=== PATIENT | male | born 2005 | race Caucasian/White ===

== ENCOUNTER 2023-10-22 14:05 | Inpatient (IN) ==
--- NOTE | 2023-10-22 14:41 | Emergency Department Note ---
Impression & Plan Sepsis, Peritonsillar abscess, Strep throat, Mononucleosis, Neutropenic sepsis ED Provider Note NAME: EMEKA BARNETT AGE: 18 SEX: M : 2005 ARRIVES VIA: Walk-In INFORMANT: Patient, ED PROVIDER(S): Zachary Sanchez MD CHIEF COMPLAINT: Outpatient referral, sore throat, concern for sepsis MEDICAL DECISION MAKING: Patient presents due to concern for sore throat recent positive strep test who is tachycardic and febrile. Sepsis protocols initiated along with IV fluids IV Toradol IV Unasyn and dexamethasone. Patient's blood work shows leukopenia and anemia. The patient's kidney function is unremarkable initial lactate of 2.6. The patient was ordered additional IV fluids. Hyponatremia at 131 with a low magnesium 1.6. This was ordered for replete meant. Procalcitonin 9.7. Given the patient's concern for SHOEMAKING FINISHER just on exam alone I did speak with Dr. Ly we did ask that the patient have a CT of the soft tissue neck completed. Patient's ANC is low 0.03. Clindamycin added in addition to the Unasyn for antitoxin effect after discussion with ED pharmacy. CT soft tissue neck shows findings compatible with SHOEMAKING FINISHER with possible tiny abscess versus developing phlegmon on the left as well. Cervical adenopathy noted also. I subsequently did speak with the on-call hospitalist service Dr. Bender and the patient was admitted to the medicine service. Patient's repeat lactate was 2.2. Discussion w/ other healthcare providers: ED pharmacist Malachi Velazquez, Pharm.D. Dr. Ly ENT Dr. Bender inpatient medicine service Prior /Outside records reviewed: None Differential diagnosis: Dehydration, UTI, pneumonia, metabolic derangment, electrolyte abnormalities, hypovolemia, anemia, cellulitis among others were considered. Diagnostics, as interpreted by me: ECG: Sinus tachycardia, rate 134, normal intervals, right axis deviation no ST elevations Cardiac monitoring: An order was placed for continuous cardiac monitoring. The monitor shows a rate of 135 with tachycardic and regular rhythm. Patient was placed on pulse oximetry Medical decision rules: None Imaging studies: I informally interpreted the patient's chest x-ray does not show obvious pneumonia or pneumothorax with formal report to follow. HPI: Patient presents due to concern for sore throat and associated referral from [facility]. Patient was sent over due to concern for sepsis. The patient reports that he was diagnosed with mono about 3 weeks ago seem to improve the second and third weeks postdiagnosis but seem to have a recurrence of some symptoms on Sunday of this past week where he has some sore throat fatigue body aches and chills. The patient has been taking some ibuprofen last taken around 6 AM this morning. Patient was seen at [facility] and because of the patient's vital signs and presentation referred him here for evaluation and treatment and possible sepsis. Patient was diagnosed with strep today. Patient has noticed some increasing discomfort to his right tonsil. Patient denies any cough. He denies any abdominal pain nausea vomiting PAST MEDICAL HISTORY: See Below PAST SURGICAL HISTORY: See Below SOCIAL HISTORY: See Below HOME MEDICATIONS: See Below ALLERGIES: See Below VITALS: See Below PHYSICAL EXAMINATION: GENERAL: Mildly ill but nontoxic in appearance. EYE EXAM: Normal conjunctiva. PERRL, no anisocoria and EOM's grossly intact w/o pain. OROPHARYNX: Moist mucus membranes, grossly normal dentition. Right-sided posterior peritonsillar swelling with mild uvular deviation but without uvular swelling. NECK: Trachea midline, no stridor. Supple, no nuchal rigidity, bilateral cervical adenopathy noted no signs of meningismus. FROM of the neck with good chin to chest and neck extension. LUNGS: Clear to auscultation. Normal chest wall mechanics. HEART: Tachycardic and regular, no MRG. ABDOMEN: Abdomen soft, non-tender, no masses, no rebound or guarding. BACK: No CVA TTP. SKIN: No rashes and no bruising. UPPER EXTREMITIES: Upper extremities are grossly normal. LOWER EXTREMITIES: Grossly normal, no edema. NEURO EXAM: A&O x3, cranial nerves II-XII grossly intact, normal speech, moves all 4 extremities. Past Med/Surg History Medical History (Updated 10/22/23 @ 19:32 by Zachary Sanchez MD) Mononucleosis Surgical History (Updated 10/22/23 @ 19:27 by Zachary Sanchez MD) No pertinent past surgical history Social History Smoking Status: Never smoker Second Hand Exposure: No; Do You Dip or Chew Tobacco: No; Tobacco Cessation Education Requested by Patient: No Hx Alcohol Use: No Hx Substance Use: No Preferred Language: Haitian Communication Ability: Effective Supply Chain Technician Required: No Beliefs That Will Affect Care: None Current Living Situation: Family Other Information That Helps Us Care for You: No Feels Safe at Home: Yes Safety Concerns: Feels Safe At This Time Assistive Devices: None Allergies Allergies Allergy/AdvReac Type Severity Reaction Status Date / Time No Known Allergies Allergy Unverified 10/22/23 18:32 Home Meds Home Medications Medication Instructions Recorded Confirmed No Known Home Medications 10/22/23 10/22/23 Results & Data (ED) Vital Signs Vital Signs - 24 hr 10/22/23 14:11 10/22/23 14:35 10/22/23 15:47 Temperature 38.0 C H Temperature Source Oral Pulse Rate 147 H 127 H Pulse Rate [Apical] Pulse Rate from SpO2 Sensor 210 H Respiratory Rate 20 22 20 Respiratory Effort / Characteristics Non-Labored Respiratory Depth Normal Blood Pressure 91/54 L Blood Pressure [Right Arm] Blood Pressure Mean 66 Blood Pressure Mean [Right Arm] Pulse Oximetry 95 98 Oxygen Delivery Method Room Air Sepsis Recent Fever Within 48 Hours Yes Sepsis New/Unexplained Change in Mental Status No Sepsis Action Taken by Nursing No Action Required 10/22/23 15:56 10/22/23 15:56 10/22/23 15:56 Temperature Temperature Source Pulse Rate 129 H Pulse Rate [Apical] 129 H Pulse Rate from SpO2 Sensor 149 H Respiratory Rate 20 27 H Respiratory Effort / Characteristics Non-Labored Respiratory Depth Normal Blood Pressure 88/62 L Blood Pressure [Right Arm] 88/62 L Blood Pressure Mean 71 Blood Pressure Mean [Right Arm] 70 Pulse Oximetry 98 98 Oxygen Delivery Method Room Air Sepsis Recent Fever Within 48 Hours Sepsis New/Unexplained Change in Mental Status Sepsis Action Taken by Nursing 10/22/23 15:57 10/22/23 16:00 10/22/23 16:33 Temperature Temperature Source Pulse Rate 124 H 126 H 132 H Pulse Rate [Apical] Pulse Rate from SpO2 Sensor 182 H Respiratory Rate 22 Respiratory Effort / Characteristics Respiratory Depth Blood Pressure Blood Pressure [Right Arm] Blood Pressure Mean Blood Pressure Mean [Right Arm] Pulse Oximetry 97 Oxygen Delivery Method Sepsis Recent Fever Within 48 Hours Sepsis New/Unexplained Change in Mental Status Sepsis Action Taken by Nursing 10/22/23 16:37 10/22/23 16:37 10/22/23 17:00 Temperature Temperature Source Pulse Rate 132 H 132 H Pulse Rate [Apical] Pulse Rate from SpO2 Sensor 133 H 131 H Respiratory Rate 21 28 H Respiratory Effort / Characteristics Respiratory Depth Blood Pressure 94/64 L Blood Pressure [Right Arm] Blood Pressure Mean 67 Blood Pressure Mean [Right Arm] Pulse Oximetry 98 96 Oxygen Delivery Method Sepsis Recent Fever Within 48 Hours Sepsis New/Unexplained Change in Mental Status Sepsis Action Taken by [facility] Medications Current Medication List: was personally reviewed by me Laboratory Data Attestation: I reviewed the patient's lab results. 10/22/23 14:23 10/22/23 14:23 Lab Results 10/22/23 10/22/23 Range/Units 14:23 16:35 WBC 3.39 L (4.8-10.8) K/ul RBC 4.45 L (4.70-6.10) M/uL Hgb 12.7 L (14.0-18.0) g/dl Hct 38.1 L (42.0-52.0) % MCV 85.6 (80.0-100.0) fL MCH 28.5 (25.0-34.0) pg MCHC 33.3 (32.0-36.0) g/dL RDW Std Deviation 40.8 (36.4-46.3) fL RDW Coeff of Tc 13.1 (11.5-14.5) % Plt Count 241 (130-400) K/uL MPV 9.2 L (9.4-12.4) fL Neutrophils % (Manual) 1 % Lymphocytes % (Manual) 57 % Monocytes % (Manual) 40 % Eosinophils % (Manual) 1 % Basophils % (Manual) 1 % Neutrophils # (Manual) 0.03 L (1.40-6.50) K/uL Total Absolute Neuts 0.03 L* (1.4-6.5) K/uL Lymphocytes # (Manual) 1.93 (1.2-3.4) K/uL Total Abs Lymphocytes 1.93 (1.2-3.4) K/uL Monocytes # (Manual) 1.36 H (0.11-0.59) K/uL Eosinophils # (Manual) 0.03 (0-0.50) K/uL Basophils # (Manual) 0.03 (0-0.2) K/uL PT 14.5 H (9.0-12.0) Seconds INR 1.3 H (0.9-1.1) APTT 37 H (21-31) Seconds PTT Ratio 1.3 Sodium 131 L (136-145) mmol/L Potassium 3.6 (3.5-5.1) mmol/L Chloride 95 L (98-107) mmol/L Carbon Dioxide 25 (21-32) mmol/L Anion Gap 11 (3-11) BUN 20 (6-23) mg/dl Creatinine 1.29 (0.6-1.4) mg/dl Est Cr Clr Drug Dosing 94.3 ml/min Est GFR ( Amer) 91.9 ml/min Est GFR (Non-Af Amer) 79.3 ml/min BUN/Creatinine Ratio 15.5 (10-20) Glucose 129 H (70-99(Fasting)) mg/dl Lactate 2.6 H* 2.2 H* (0.4-2.0) mmol/L Calcium 9.1 (8.6-10.3) mg/dl Magnesium 1.6 L (1.7-2.4) mg/dl Total Bilirubin 1.4 H (0.2-1.0) mg/dl AST 17 (13-39) U/L ALT 51 (7-52) U/L Alkaline Phosphatase 24 L (34-104) U/L Troponin I High Sens 15.0 (0-20) pg/ml Total Protein 8.1 (6.0-8.3) gm/dl Albumin 4.3 (3.4-5.0) gm/dl Globulin 3.8 (2.5-4.0) gm/dl Albumin/Globulin Ratio 1.1 (0.9-2) Procalcitonin 9.73 H (0-0.5) ng/ml Administered Medications Vancomycin HCl 1,500 mg/ (Sodium Chloride) 530 mls @ 200 mls/hr IV NOW ONE Stop: 10/22/23 20:23 Last Admin: 10/22/23 18:26 Dose: 200 mls/hr Documented By: DS Discontinued Medications Dexamethasone (Dexamethasone Sod Inj 4 Mg/Ml Vial) 10 mg IV NOW STA Stop: 10/22/23 14:48 Last Admin: 10/22/23 15:24 Dose: 10 mg Documented By: ES Ampicillin Sodium/Sulbactam Sodium 3,000 mg/ Sodium Chloride 100 mls @ 200 mls/hr IV NOW STA Stop: 10/22/23 15:16 Last Infusion: 10/22/23 15:27 Dose: Infused Documented By: Admin: 10/22/23 15:24 Dose: 200 mls/hr Documented By: ES Sodium Chloride (Nss) 1,000 mls @ 999 mls/hr IV .Q1H1M RIVER Stop: 10/22/23 17:00 Last Infusion: 10/22/23 15:36 Dose: Infused Documented By: Admin: 10/22/23 15:28 Dose: 999 mls/hr Documented By: Infusion: 10/22/23 15:28 Dose: Infused Documented By: Admin: 10/22/23 15:00 Dose: 999 mls/hr Documented By: ES Magnesium Sulfate/Dextrose (Magnesium Sulfate / D5w) 1 gm in 100 mls @ 100 mls/hr IV NOW STA Stop: 10/22/23 16:44 Last Infusion: 10/22/23 16:54 Dose: Infused Documented By: Admin: 10/22/23 15:56 Dose: 200 mls/hr Documented By: ES Clindamycin Phosphate (Cleocin/D5w) 900 mg in 50 mls @ 100 mls/hr IV NOW ONE Stop: 10/22/23 16:40 Last Infusion: 10/22/23 17:30 Dose: Infused Documented By: Admin: 10/22/23 16:39 Dose: 100 mls/hr Documented By: ES Sodium Chloride (Nss) 1,000 mls @ 999 mls/hr IV .Q1H1M ONE Stop: 10/22/23 17:48 Last Infusion: 10/22/23 18:53 Dose: Infused Documented By: Admin: 10/22/23 17:30 Dose: 999 mls/hr Documented By: ES Acetaminophen (Ofirmev) 1,000 mg in 100 mls @ 400 mls/hr IV NOW STA Stop: 10/22/23 17:02 Last Infusion: 10/22/23 17:53 Dose: Infused Documented By: Admin: 10/22/23 17:30 Dose: 400 mls/hr Documented By: ES Ioversol (Optiray 320 100ml) 92 ml IV ONCE ONE Stop: 10/22/23 16:30 Last Admin: 10/22/23 16:29 Dose: 92 ml Documented By: LINDEN Ketorolac Tromethamine (Ketorolac Tromethamine 15 Mg/Ml Vial) 10 mg IV NOW ONE Stop: 10/22/23 14:48 Last Admin: 10/22/23 15:24 Dose: 10 mg Documented By: ES Imaging Data Radiologist's Impression: Chest X-Ray 10/22/23 14:15 XR chest 1V portable CLINICAL HISTORY: Sepsis TECHNIQUE: Single frontal radiograph of the chest was obtained. Comparison: None available at the time of this dictation. FINDINGS: No lines and tubes are seen. The cardiomediastinal silhouette is normal. The lungs are clear. No evidence of pleural effusion or pneumothorax. IMPRESSION: No acute abnormalities and in particular no radiographic evidence of pneumonia. ACT 112: Negative or not required by law. Electronically signed by: Nura Garcia M.D. 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 Automated dose lowering techniques and/or adjustment according to patient size were utilized for this exam. Comparison: None available at the time of this dictation. Findings: There is are multiple irregular hypodensities in the right greater than left tonsil, measuring up to 17 x 10 mm on the right. The oropharynx, hypopharynx, larynx, and trachea are patent. Bilateral lymph nodes measure up to 15 mm. The parotid glands, submandibular glands, and thyroid gland are unremarkable. Imaged portions of the brain parenchyma are unremarkable. The paranasal sinuses and mastoid air cells are normal in appearance. Impression: Findings are compatible with peritonsillar abscess with possible tiny abscess versus developing phlegmon on the left as well. Reactive bilateral cervical lymphadenopathy. ACT 112: Negative or not required by law. Electronically signed by: Nura Garcia M.D. 10/22/2023 4:43 PM Discharge Plan Visit Data Chief Complaint: Throat Pain Stated Complaint: HAD MONO,HAS STREP,LOSS OF APPIETITE ED Provider: Zachary Sanchez Discharge Problem: Sepsis, Peritonsillar abscess, Strep throat, Mononucleosis, Neutropenic sepsis Patient Disposition: Admitted As Inpatient Discharge Instructions Interventions: ED Discharge Assessment Last Done: 10/22/23 17:47 Discharge Problem: Sepsis Qualifiers: Sepsis type: sepsis due to unspecified organism Sepsis acute organ dysfunction status: unspecified Qualified Code(s): A41.9 - Sepsis, unspecified organism
[2023-10-22] MEDS: SODIUM CHLORIDE 0.9% 1,000 ML IV SCH (15:00)
[2023-10-22 15:14] LABS: Albumin Globulin Ratio 1.1 (0.9-2); Albumin Level 4.3 gm/dl (3.4-5.0); BUN Creatinine Ratio 15.5 (10-20); Bilirubin,Total 1.4 mg/dl (0.2-1.0); Calcium 9.1 mg/dl (8.6-10.3); Creatinine Clr Calc Pharmacy 94.3 ml/min; Est GFR (African American) 91.9 ml/min; Est GFR (Non-African American) 79.3 ml/min; Globulin 3.8 gm/dl (2.5-4.0); Magnesium 1.6 mg/dl (1.7-2.4); Potassium 3.6 mmol/L (3.5-5.1); Total Protein 8.1 gm/dl (6.0-8.3)
[2023-10-22 15:17] LABS: Hematocrit (blood only) 38.1 % (42.0-52.0); Hemoglobin 12.7 g/dl (14.0-18.0); Mean Corpuscular Hemoglobin 28.5 pg (25.0-34.0); Mean Corpuscular Hgb Conc 33.3 g/dL (32.0-36.0); Mean Corpuscular Volume 85.6 fL (80.0-100.0); Mean Platelet Volume 9.2 fL (9.4-12.4); Platelet Count 241 K/uL (130-400); RDW Coefficient of Variation 13.1 % (11.5-14.5); RDW Standard Deviation 40.8 fL (36.4-46.3); Red Blood Count 4.45 M/uL (4.70-6.10); White Blood Count 3.39 K/ul (4.8-10.8)
[2023-10-22 15:24] LABS: INR 1.3 (0.9-1.1); Partial Thromboplastin Ratio 1.3; Partial Thromboplastin Time 37 Seconds (21-31); Prothrombin Time 14.5 Seconds (9.0-12.0)
[2023-10-22] MEDS: DEXAMETHASONE SOD INJ 4 MG/ML VIAL IV STA (15:24)
[2023-10-22] MEDS: AMPICILLIN/SULBACTAM SOD 3,000 MG in SODIUM CHLOR 0.9% MINI-B 100 ML IV STA (15:24)
[2023-10-22] MEDS: KETOROLAC TROMETHAMINE 15 MG/ML VIAL IV ONE (15:24)
[2023-10-22] MEDS: MAGNESIUM SULFATE / D5W 1 GM/100 ML BAG IV STA (15:56)
--- NOTE | 2023-10-22 16:01 | XRay Report ---
XR chest 1V portable CLINICAL HISTORY: Sepsis TECHNIQUE: Single frontal radiograph of the chest was obtained. Comparison: None available at the time of this dictation. FINDINGS: No lines and tubes are seen. The cardiomediastinal silhouette is normal. The lungs are clear. No evid ence of pleural effusion or pneumothorax. IMPRESSION: No acute abnormalities and in particular no radiographic evidence of pneumonia. ACT 112: Negative or not required by law. Electronically signed by: Nura Garcia M.D. 10/22/2023 3:59 PM
[2023-10-22 16:11] LABS: ALC (manual) 1.93 K/uL (1.2-3.4); ANC (manual) 0.03 K/uL (1.4-6.5); Basophils # (manual) 0.03 K/uL (0-0.2); Basophils % (manual) 1 %; Eosinophils # (manual) 0.03 K/uL (0-0.50); Eosinophils % (manual) 1 %; Lymphocytes # (manual) 1.93 K/uL (1.2-3.4); Lymphocytes % (manual) 57 %; Monocytes # (manual) 1.36 K/uL (0.11-0.59); Monocytes % (manual) 40 %; Neutrophils # (manual) 0.03 K/uL (1.40-6.50); Neutrophils % (manual) 1 %
[2023-10-22] MEDS: OPTIRAY 320 100ml IV ONE (16:29)
[2023-10-22] MEDS: CLINDAMYCIN/D5W 900 MG/50 ML BAG IV ONE (16:39)
--- NOTE | 2023-10-22 16:45 | CT Scan Report ---
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 Automated dose lowering techniques and/or adjustment according t o patient size were utilized for this exam. Comparison: None available at the time of this dictation. Findings: There is are multiple irregular hypodensities in the right greater than left tonsil, measuring up to 17 x 10 mm on the right. The oropharynx, hypopharynx, larynx, and trachea are patent. Bilateral lymph nodes measure up to 15 mm. The parotid glands, submandibular glands, and thyroid gland are unremarka ble. Imaged portions of the brain parenchyma are unremarkable. The paranasal sinuses and mastoid air cell s are normal in appearance. Impression: Findings are compatible with peritonsillar abscess with possible tiny abscess versus developing phleg mon on the left as well. Reactive bilateral cervical lymphadenopathy. ACT 112: Negative or not required by law. Electronically signed by: Nura Garcia M.D. 10/22/2023 4:43 PM
--- NOTE | 2023-10-22 17:28 | History & Physical Report ---
Date of Service October 22, 2023 Assessment & Plan (1) Neutropenic sepsis: Plan: Source = peritonsillar abscess Lactate 2.6 -> 2.2 s/p 2L NSS, additional 1L NSS given Add vancomycin for MRSA coverage - can be subsequently discontinued if MRSA swab negative Most likely strep given group A strep PCR throat swab positive at [facility] Cover with Unasyn + clindamycin (anti-toxin effect) Discussed neutropenia with hematology (Dr Thakkar) on admission - recommend treatment with antibiotics for 24-48 hours and if remains neutropenia can consider g-csf at that time (2) Peritonsillar abscess: Plan: Consult otolaryngology - appreciate culture taken with drainage of scant fluid Will defer further dexamethasone pending clinical course (3) Strep throat: Plan: Cover with Unasyn + clindamycin for toxin effect (4) Mononucleosis: Plan: Diagnosed 3.5 weeks ago Plan VTE Prophylaxis - low risk given young age, consider if prolonged hospitalization Diet - regular, soft bite sized Disposition - admit to PCU Admission and Anticipated Discharge Date Admission Date: October 22, 2023 History of Present Illness Chief Complaint: Sore throat, fever Primary Care Provider: [facility] Blake Nguyen is a 18 year old male who presents to the ER from [facility] due to concern for sepsis. He was diagnosed with mononucleosis 3.5 weeks ago. He appeared to be improving up until Sunday when he started getting worse again with loss of appetite, generalized fatigue, sore throat. No difficulty with breathing with his sore throat. He went back to [facility] today and Group A Strep PCR was performed and positive and he was advised to come to the ER. Prior to his mononucleosis diagnosis he was fit and well with no chronic medical conditions. Allergies Allergy/AdvReac Type Severity Reaction Status Date / Time No Known Allergies Allergy Unverified 10/22/23 18:32 Home Medications Medication Instructions Recorded Confirmed Type No Known Home Medications 10/22/23 10/22/23 History Past Med/Surg History Medical History (Updated 10/22/23 @ 19:32 by Zachary Sanchez MD) Mononucleosis Surgical History (Updated 10/22/23 @ 19:27 by Zachary Sanchez MD) No pertinent past surgical history Social History Smoking Status: Never smoker Second Hand Exposure: No; Do You Dip or Chew Tobacco: No; Tobacco Cessation Education Requested by Patient: No Hx Alcohol Use: No Hx Substance Use: No Preferred Language: East Timorese Communication Ability: Effective 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 Beliefs That Will Affect Care: None Current Living Situation: Family Other Information That Helps Us Care for You: No Feels Safe at Home: Yes Safety Concerns: Feels Safe At This Time Assistive Devices: None Review of Systems Review of Systems: All systems reviewed & are unremarkable except as noted in HPI & below Physical Exam Constitutional: WD/WN, vitals as above Eyes: PERRL, conjunctivae normal, anicteric sclerae Respiratory: normal respiratory effort, lungs clear to auscultation no stridor Cardiovascular: Rate/Rhythm: regular rhythm and + tachycardic Heart Sounds: no murmur Extremities: normal capillary refill; no calf tenderness and no pedal edema Gastrointestinal (Abdomen): normal bowel sounds, soft, nontender, no hep atosplenomegaly Musculoskeletal: no cyanosis or clubbing, extremities motor strength 5/5 Skin: no rashes, warm and dry Neurologic: moves all extremities and awake; no focal motor deficits and not confused Psychiatric: A+Ox3, euthymic affect Genitourinary: no CVA tenderness Results & Data Results & Data Vital Signs (Past 12 Hours) Vital Signs Temp Pulse Pulse Resp BP BP Pulse Ox 10/22/23 15:57 124 H 10/22/23 15:56 129 H 20 88/62 L 98 10/22/23 14:35 22 10/22/23 14:11 38.0 C H 147 H 20 91/54 L 95 O2 Del Method 10/22/23 15:57 10/22/23 15:56 Room Air 10/22/23 14:35 10/22/23 14:11 Room Air Diagnostic Findings XR chest 1V portable CLINICAL HISTORY: Sepsis TECHNIQUE: Single frontal radiograph of the chest was obtained. Comparison: None available at the time of this dictation. FINDINGS: No lines and tubes are seen. The cardiomediastinal silhouette is normal. The lungs are clear. No evidence of pleural effusion or pneumothorax. IMPRESSION: No acute abnormalities and in particular no radiographic evidence of pneumonia. 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 Automated dose lowering techniques and/or adjustment according to patient size were utilized for this exam. Comparison: None available at the time of this dictation. Findings: There is are multiple irregular hypodensities in the right greater than left tonsil, measuring up to 17 x 10 mm on the right. The oropharynx, hypopharynx, larynx, and trachea are patent. Bilateral lymph nodes measure up to 15 mm. The parotid glands, submandibular glands, and thyroid gland are unremarkable. Imaged portions of the brain parenchyma are unremarkable. The paranasal sinuses and mastoid air cells are normal in appearance. Impression: Findings are compatible with peritonsillar abscess with possible tiny abscess versus developing phlegmon on the left as well. Reactive bilateral cervical lymphadenopathy. Medications Administered ER Medications Given: Toradol 10mg IV Unasyn 3000mg IV Normal saline 1000ml bolus Dexamethasone 10mg IV ECG Rate (beats per minute): 134 Rhythm: sinus tachycardia Findings: + nonspecific-ST abn Comparison ECG Date: no prior available Code Status & VTE Plan Code Status Full VTE Prophylaxis Plan VTE Prophylaxis will be ordered: No PG Care Time/CCT Total # of Minutes Spent Total Time Spent with Patient: Total time spent is greater than 50% in coordination of care (as documented) at patient's floor/unit and/or counseling patient: Coding Level of Care Code 35318 INT INP/OBS CARE 3/75MIN Diagnoses Neutropenic sepsis A41.9; D70.9 Peritonsillar abscess J36 Strep throat J02.0 Mononucleosis B27.90
[2023-10-22] MEDS ORDERED: VANCOMYCIN CONSULT ACTIVE PRN (17:30)
[2023-10-22] MEDS: SODIUM CHLORIDE 0.9% 1,000 ML IV ONE (17:30)
[2023-10-22] MEDS: ACETAMINOPHEN 1,000 MG/100 ML VIAL IV STA (17:30)
--- NOTE | 2023-10-22 17:36 | ENT Consultation ---
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 Underwent bedside needle aspiration today, scant material sent for culture. No evidence of Lemierre's syndrome on imaging. -Agree with admission given sepsis -F/u cultures and BCx -Unasyn +/- clindamcyin -Decadron 10mg Q8H x3 doses -OK for PO from ENT standpoint -Call with issues or concerns History of Present Illness History of Present Illness 18yM previously healthy presenting with sepsis and R throat pain. Diagnosed with mono 3 weeks ago, improved, then developed 2 days progressive R throat pain, odynophagia, mild otalgia. +fevers, chills, malaise, anorexia. Febrile, tach ycardic, hypotensive in ED. WBC 3, ANC 30. 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 No previous issues with similar symptoms. No immunosuppression at baseline. Patient History Medical History (Updated 10/22/23 @ 17:32 by Justice Bender MD) Mononucleosis Social History Smoking Status: Never smoker Feels Safe at Home: Yes Review of Systems Review of Systems: A 10-point ROS is negative except as noted above Physical Exam Physical Exam: General: No acute distress, nonlabored respirations Face: normal facial motion Eyes: Extraocular motion is intact. Normal sclera and conjunctiva Ears: External auditory canals +cerumen. Visualized tympanic membrane is intact and the middle ear is aerated bilaterally. Nose: no external deformity, nares patent. No rhinorrhea or epistaxis. Oral cavity: clear, minimal trismus. No masses or lesions of the oral tongue, lips, gingiva, GBS, floor of mouth, retromolar trigone, hard or soft palate Oropharynx: 2+ tonsils,Exudate bilaterally. Mild soft palate fullness with mild uvular deviation to the left Neck: soft, bilateral 2cm level II/III adenopathy. Full ROM Procedure: Needle aspiration of R peritonsillar abscess Indications: R peritonsillar abscess Details: Informed consent was obtained. The oropharynx was visualized directly. 1cc 1% lidocaine with [id number] epinephrine was instilled into the right superolateral peritonsillar tissue. After adequate local anesthesia was achieved, an 18 gauge needle was used to decompress the right peritonsillar abscess with return of scant bloody/purulent material. This material was sent for culture. Adequate hemostasis was noted. The patient tolerated the procedure well and there were no complications. Results & Data Vital Signs (Past 12 Hours) Vital Signs Temp Pulse Pulse Resp BP BP Pulse Ox 10/22/23 15:57 124 H 10/22/23 15:56 129 H 20 88/62 L 98 10/22/23 14:35 22 10/22/23 14:11 38.0 C H 147 H 20 91/54 L 95 O2 Del Method 10/22/23 15:57 10/22/23 15:56 Room Air 10/22/23 14:35 10/22/23 14:11 Room Air PG Care Time/CCT Total # of Minutes Spent Total Time Spent with Patient: Total time spent is greater than 50% in coordination of care (as documented) at patient's floor/unit and/or counseling patient: Coding Level of Care Code 07158 OFFICE CONSULT LVL 40M (25 - SIGNIFICANT, SEPARATELY IDENTIFIABLE ) Diagnoses Peritonsillar abscess J36 Strep throat J02.0 Neutropenic sepsis A41.9; D70.9 CPT Codes Drainage of Tonsil Abscess - 90826 ([id number])
[2023-10-22] MEDS ORDERED: Patient's ALLERGY Info needs ENTERED SCH (18:00)
[2023-10-22] MEDS ORDERED: ACETAMINOPHEN 325 MG TAB PO PRN (18:25)
[2023-10-22] MEDS: VANCOMYCIN HCL 1,500 MG in SODIUM CHLORIDE 0.9% 500 ML IV ONE (18:26)
[2023-10-22] MEDS: LACTATED RINGER'S 1,000 ML IV SCH (19:50)
[2023-10-22] MEDS: AMPICILLIN/SULBACTAM SOD 3,000 MG in SODIUM CHLOR 0.9% MINI-B 100 ML IV SCH (21:42)
[2023-10-22] MEDS: VANCOMYCIN HCL 750 MG in SODIUM CHLORIDE 0.9% 250 ML IV SCH (23:49)
[2023-10-23] MEDS: CLINDAMYCIN/D5W 900 MG/50 ML BAG IV SCH (00:45)
[2023-10-23] MEDS: MAGNESIUM SULFATE / D5W 1 GM/100 ML BAG IV ONE (01:24)
--- NOTE | 2023-10-23 05:59 | Electrocardiogram Report ---
Test Reason : Blood Pressure : / mmHG Vent. Rate : 134 BPM Atrial Rate : 134 BPM P-R Int : 136 ms QRS Dur : 076 ms QT Int : 286 ms P-R-T Axes : 074 094 053 degrees QTc Int : 427 ms Sinus tachycardia Rightward axis Nonspecific ST abnormality No previous ECGs available Confirmed by Emilio Hinson ([id number]) on 10/23/2023 5:59:06 AM Referred By: REFERRED SELF Confirmed By:Emilio Hinson
[2023-10-23 06:44] LABS: Albumin Level 3.2 gm/dl (3.4-5.0); BUN Creatinine Ratio 16.9 (10-20); Bilirubin,Total 0.7 mg/dl (0.2-1.0); Calcium 8.5 mg/dl (8.6-10.3); Creatinine Clr Calc Pharmacy 146.6 ml/min; Est GFR (African American) 146.8 ml/min; Est GFR (Non-African American) 126.7 ml/min; Globulin 3.2 gm/dl (2.5-4.0); Potassium 4.5 mmol/L (3.5-5.1); Total Protein 6.4 gm/dl (6.0-8.3)
[2023-10-23 07:17] LABS: ALC (manual) 1.54 K/uL (1.2-3.4); ANC (manual) 1.07 K/uL (1.4-6.5); Dohle Bodies 1+; Eosinophils # (manual) 0.04 K/uL (0-0.50); Eosinophils % (manual) 1 %; Hematocrit (blood only) 33.8 % (42.0-52.0); Hemoglobin 11.3 g/dl (14.0-18.0); Lymphocytes % (manual) 35 %; Mean Corpuscular Hemoglobin 28.8 pg (25.0-34.0); Mean Corpuscular Hgb Conc 33.4 g/dL (32.0-36.0); Mean Platelet Volume 9.4 fL (9.4-12.4); Monocytes # (manual) 1.63 K/uL (0.11-0.59); Monocytes % (manual) 38 %; Neutrophils # (manual) 1.07 K/uL (1.40-6.50); Neutrophils % (manual) 25 %; Platelet Count 200 K/uL (130-400); Polychromasia 1+; RDW Coefficient of Variation 13.2 % (11.5-14.5); RDW Standard Deviation 42.1 fL (36.4-46.3); Reactive Lymphocytes # (manual) 0.04 K/uL; Reactive Lymphocytes % (manual) 1 %; Red Blood Count 3.93 M/uL (4.70-6.10); Toxic Granulation 1+; White Blood Count 4.28 K/ul (4.8-10.8)
--- NOTE | 2023-10-23 07:58 | Ears,Nose,Throat Progress Note ---
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 Clinically improving, ANC wnl and WBC improving. No drainable abscess on exam today. -OK for PO from ENT standpoint -Continue IV abx - transition to augmentin x10 days upon discharge -Transition to medrol dosepak upon discharge -F/u BCx -Upon discharge, can f/u as an outpatient with recurrence of symptoms - [phone] Admission and Anticipated Discharge Date Admission Date: October 22, 2023 Subjective NICOLE o/n. Feeling better today. Still sore throat but less odynophagia. Physical Exam Physical Exam: Afebrile, normal HR and BP this AM Oral cavity clear, no trismus 2-3+ tonsils with exudate, minimal soft palate fullness on left. No uvular deviation 1.5-2cm bilateral level II/III adenopath y Results & Data Vital Signs (Past 12 Hours) Vital Signs Temp Pulse Resp BP Pulse Ox O2 Del Method 10/23/23 07:41 36.7 C 85 14 106/69 99 Room Air 10/23/23 07:14 36.3 C L 81 18 111/76 94 Room Air 10/23/23 03:21 79 16 98/68 L 98 Room Air 10/22/23 23:24 36.4 C L 71 18 104/70 98 Room Air PG Care Time/CCT Total # of Minutes Spent Total Time Spent with Patient: Total time spent is greater than 50% in coordination of care (as documented) at patient's floor/unit and/or counseling patient: Coding Level of Care Code 85082 SUB INP/OBS CARE 2/35MIN Diagnoses Strep throat J02.0 Peritonsillar abscess J36
--- NOTE | 2023-10-23 22:32 | Hospitalist Progress Note ---
Date of Service October 23, 2023 Assessment & Plan (1) Neutropenic sepsis: Plan: Source = peritonsillar abscess Lactate 2.6 -> 2.2 s/p 2L NSS, additional 1L NSS given Add vancomycin for MRSA coverage - can be subsequently discontinued if MRSA swab negative Most likely strep given group A strep PCR throat swab positive at [facility] Cover with Unasyn + clindamycin (anti-toxin effect) Discussed neutropenia with hematology (Dr Thakkar) on admission - recommend treatment with antibiotics for 24-48 hours and if remains neutropenia can consider g-csf at that time Neutropenia is improving. Temperature is also improving. will monitor. appreciate input from ENT> (2) Peritonsillar abscess: Plan: Consult otolaryngology - appreciate culture taken with drainage of scant fluid Will defer further dexamethasone pending clinical course (3) Strep throat: Plan: Cover with Unasyn + clindamycin for toxin effect (4) Mononucleosis: Plan: Diagnosed 3.5 weeks ago Plan VTE Prophylaxis - low risk given young age, consider if prolonged hospitalization Diet - regular, soft bite sized Disposition - admit to PCU Admission and Anticipated Discharge Date Admission Date: October 22, 2023 Subjective Patient reports feeling better. Swallowing better. Notices warm fluid when he swallows. Review of Systems Review of Systems: All systems reviewed & are unremarkable except as noted in HPI & below Physical Exam Physical Exam: Constitutional: WD/WN, vitals as above Eyes: PERRL, conjunctivae normal, anicteric sclerae Respiratory: normal respiratory effort, lungs clear to auscultation no stridor Cardiovascular: Rate/Rhythm:RRR Gastrointestinal (Abdomen): normal bowel sounds, soft, nontender, no hepatosplenomegaly Musculoskeletal: no cyanosis or clubbing, extremities motor strength 5/5 Skin: no rashes, warm and dry Neurologic: moves all extremities and awake; Psychiatric: A+Ox3, euthymic affect Results & Data Results & Data Vital Signs (Past 12 Hours) Vital Signs Temp Pulse Pulse Resp BP Pulse Ox Pulse Ox 10/23/23 21:00 98 10/23/23 19:34 36.8 C 95 H 18 97/56 L 98 10/23/23 16:39 37.2 C 100 H 18 104/65 97 10/23/23 15:27 83 10/23/23 12:04 36.4 C L 95 H 14 113/66 99 O2 Del Method O2 Del Method 10/23/23 21:00 Room Air 10/23/23 19:34 Room Air 10/23/23 16:39 Room Air 10/23/23 15:27 10/23/23 12:04 Room Air PG Care Time/CCT Total # of Minutes Spent Total Time Spent with Patient: Total time spent is greater than 50% in coordination of care (as documented) at patient's floor/unit and/or counseling patient: Coding Level of Care Code 31717 SUB INP/OBS CARE 2/35MIN Diagnoses Neutropenic sepsis A41.9; D70.9 Peritonsillar abscess J36 Strep throat J02.0 Mononucleosis B27.90
[2023-10-24 06:37] LABS: Anion Gap 5 (3-11); BUN Creatinine Ratio 18.2 (10-20); Blood Urea Nitrogen 12 mg/dl (6-23); C Reactive Protein 14.28 mg/dl (0-0.5); Calcium 8.6 mg/dl (8.6-10.3); Carbon Dioxide 27 mmol/L (21-32); Chloride 106 mmol/L (98-107); Creatinine Clr Calc Pharmacy 184.3 ml/min; Est GFR (African American) > 150.0 ml/min; Est GFR (Non-African American) 139.2 ml/min; Glucose 129 mg/dl (70-99(Fasting)); Potassium 3.9 mmol/L (3.5-5.1); Sodium 138 mmol/L (136-145)
[2023-10-24 06:50] LABS: Basophils # (auto) 0.08 K/uL (0.00-0.20); Basophils % (auto) 1.1 %; Dohle Bodies 1+; Eosinophils # (auto) 0.04 K/uL (0.00-0.50); Eosinophils % (auto) 0.6 %; Hematocrit (blood only) 33.5 % (42.0-52.0); Hemoglobin 10.9 g/dl (14.0-18.0); Immature Granulocytes % (auto) 1.4 %; Lymphocytes # (auto) 2.55 K/uL (1.20-3.40); Lymphocytes % (auto) 35.4 %; Mean Corpuscular Hemoglobin 28.3 pg (25.0-34.0); Mean Corpuscular Hgb Conc 32.5 g/dL (32.0-36.0); Mean Platelet Volume 9.8 fL (9.4-12.4); Monocytes # (auto) 1.61 K/uL (0.11-0.59); Monocytes % (auto) 22.4 %; Neutrophils # (auto) 2.82 K/uL (1.40-6.50); Neutrophils % (auto) 39.1 %; Platelet Count 246 K/uL (130-400); Polychromasia 1+; RDW Coefficient of Variation 13.4 % (11.5-14.5); RDW Standard Deviation 42.5 fL (36.4-46.3); Red Blood Count 3.85 M/uL (4.70-6.10); Toxic Granulation 1+
--- NOTE | 2023-10-24 11:44 | Discharge Summary ---
Date of Service October 24, 2023 Admission HPI Per Admitting Provider Blake Nguyen is a 18 year old male who presents to the ER from [facility] due to concern for sepsis. He was diagnosed with mononucleosis 3.5 weeks ago. He appeared to be improving up until Sunday when he started getting worse again with loss of appetite, generalized fatigue, sore throat. No difficulty with breathing with his sore throat. He went back to [facility] today and Group A Strep PCR was performed and positive and he was advised to come to the ER. Prior to his mononucleosis diagnosis he was fit and well with no chronic medical conditions. Principal Diagnosis neutropenic sepsis Discharge Exam Constitutional: WD/WN, vitals as above Eyes: PERRL, conjunctivae normal, anicteric sclerae Respiratory: normal respiratory effort, lungs clear to auscultation no stridor Cardiovascular: Rate/Rhythm:RRR Gastrointestinal (Abdomen): normal bowel sounds, soft, nontender, no hepatosplenomegaly Musculoskeletal: no cyanosis or clubbing, extremities motor strength 5/5 Skin: no rashes, warm and dry Neurologic: moves all extremities and awake; Psychiatric: A+Ox3, euthymic affect Discharge Data Allergies Allergy/AdvReac Type Severity Reaction Status Date / Time No Known Allergies Allergy Unverified 10/22/23 18:32 Consultations 10/22/23 16:47 Consult Otolaryngology (Head and Neck) Routine ED Decision to Admit Stat Ordered Studies 10/22/23 15:48 CT soft tissue neck w con Stat Hospital Course (1) Neutropenic sepsis: Source = peritonsillar abscess Lactate 2.6 -> 2.2 s/p 2L NSS, additional 1L NSS given Add vancomycin for MRSA coverage - can be subsequently discontinued if MRSA swab negative Most likely strep given group A strep PCR throat swab positive at [facility] Cover with Unasyn + clindamycin (anti-toxin effect) Discussed neutropenia with hematology (Dr Thakkar) on admission - recommend treatment with antibiotics for 24-48 hours and if remains neutropenia can consider g-csf at that time Neutropenia is improving with antibiotics Patient afebrile for over 24 hours will monitor. appreciate input from ENT will complete antibiotics for an additional 10 days (2) Peritonsillar abscess: Consult otolaryngology - appreciate culture taken with drainage of scant fluid (3) Strep throat: Cover with Unasyn + clindamycin for toxin effect transitioned to augmentin (4) Mononucleosis: Diagnosed 3.5 weeks ago Total Time Total Time Spent Total Time Spent (In Minutes): 32 Discharge Plan Discharge Items Patient Disposition: Home - Self-Care Reason For Visit: SEPSIS, PERITONSILLAR ABCESS Discharge Diagnosis: peritonsillar abscess Activity: Resume your previous activity Non-emergency contact: Primary Care Provider Call non-emergency contact if: you have any medication questions Follow-up/Referrals: [facility] [Primary Care Provider] - (Please schedule follow up with [facility]) Diet: Regular Addtl Attending Provider Instructions: Good morning Mr. Nguyen, You were being seen by ENT Dr. Donnell Ly and myself Dr. Dada Gutiérrez.. You were seen for a significant peritonisllar abscess that required drainage. You came in with a low count of white blood cells. Thankfully your blood work improved as well as the abscesss itself. Will recommend you continue antibiotics for 10 more days. Please take next dose at 6 pm on a full stomach. Try to take them every 12 hours. If you normally eat around 7am, you can switch to 7 am and 7 pm times on 10/24 You will also be placed on a steroid taper. Recommend followup with S in 1-2 weeks Pending Studies at Discharge: No Stand-Alone Forms: My [facility], Work/School Release, Smoking Cessation Medications and DC Order Prescriptions: New amoxicillin-pot clavulanate 875-125 mg tablet 1 tab PO BID Qty: 20 0RF methylprednisolone [Medrol (Chase)] 4 mg tablets,dose pack 4 mg PO DAILY Qty: 21 0RF Rx Instructions: Take 6 tablets on day one in the AM then 5 tablets on day 2 in the AM, then 4 tablets on day 3 in the and continue to taper each day Discharge Orders: Discharge Order (Routine); Ordered 10/24/23 Ordered By: Dada Gutiérrez Admission Data Admit Date/Time: 10/22/23 17:27 Attending Provider: Dada Gutiérrez Admit Provider: Justice Bender Primary Care Provider: [facility] Other Providers: Justice Bender; Donnell Ly Other Interventions: Discharge Summary Assessment (RN) Last Done: 10/24/23 11:57 Coding Level of Care Code 37029 INP/OBS DISCH >30 MIN Diagnoses Neutropenic sepsis A41.9; D70.9 Peritonsillar abscess J36 Strep throat J02.0 Mononucleosis B27.90
== END 2023-10-24 12:39 | disposition home or self-care (01) | DRG 854 ==
LOC: ED 14:05 → SUATTDRO 17:27 → 2S 17:27